=== PATIENT | female | born 1955 | race Asian ===

== ENCOUNTER 2018-03-03 13:22 | Emergency (ER) | payer OTHER ==
[~2018-03-03] VITALS: Ht 152.4 cm; Wt 67.6 kg
[2018-03-03 13:27] VITALS: Ht 152.4 cm; Wt 67.6 kg
[2018-03-03 16:15] VITALS: BP 160/89
== END 2018-03-03 16:15 | disposition home or self-care (01) ==
LOC: ED 13:22
DX: M10.041 Idiopathic gout, right hand (principal); I10 Essential (primary) hypertension; E11.9 Type 2 diabetes mellitus without complications; Z88.2 Allergy status to sulfonamides; Z88.1 Allergy status to other antibiotic agents